=== PATIENT | female | born 1935 | race Caucasian/White ===

== ENCOUNTER 2017-03-17 14:33 | Inpatient (IN) | payer MEDICARE, OTHER ==
[2017-03-17] MEDS ORDERED: MORPHINE 2 MG/ML SYRINGE IVP STA ×3 (14:46→17:05)
--- NOTE | 2017-03-17 14:49 | ED Physician Documentation ---
PD HPI LOWER EXT INJURY - Stated complaint Stated Complaint: LT HIP PX - History obtained from History obtained from: Patient, Family - History of Present Illness PD HPI LOW EXT INJURY LOCATION: Left (She is visiting from [place], has a history of bilateral total knee replacements and right hip replacements. She got off balance and landed directly on her left hip just prior to arrival and has severe pain there, no other injuries. She is not able to walk.) Review of Systems Ten Systems: 10 systems reviewed and negative Constitutional: reports: Reviewed and negative Cardiac: reports: Reviewed and negative Respiratory: reports: Reviewed and negative Musculoskeletal: reports: Reviewed and negative PD PAST MEDICAL HISTORY - Past Medical History Past Medical History: Yes Cardiovascular: Hypertension - Past Surgical History Past Surgical History: Yes Ortho: Hip replacement, Knee replacement - Present Medications Home Medications: Ambulatory Orders Medication Instructions Recorded Confirmed Aspirin 325 mg PO DAILY 03/17/17 03/17/17 Calcium Carbonate/Vitamin D3 1 tab PO DAILY 03/17/17 03/17/17 [Calcium 500-Vit D3 200 Tablet] Gabapentin 100 mg PO DAILY PM 03/17/17 03/17/17 Losartan [Cozaar] 50 mg PO DAILY 03/17/17 03/17/17 - Allergies Allergies/Adverse Reactions: Allergies Allergy/AdvReac Type Severity Reaction Status Date / Time hydrocodone AdvReac Nausea Verified 03/17/17 15:00 - Living Situation Living Arrangement: reports: At home - Social History Does the pt smoke?: No Does the pt drink ETOH?: No Does the pt have substance abuse?: No - Family History Family history: reports: Non contributory PD ED PE NORMAL - Vitals Vital signs reviewed: Yes - General General: Alert and oriented X 3, No acute distress - HEENT HEENT: PERRL, EOMI - Neck Neck: Supple, no meningeal sign, No bony TTP - Cardiac Cardiac: RRR, No murmur - Respiratory Respiratory: No respiratory distress, Clear bilaterally - Abdomen Abdomen: Soft, Non tender - Derm Derm: Normal color, Warm and dry - Extremities Extremities: Other (Holding the left hip slightly flexed and slightly externally rotated but it is not shortened. She has severe pain with internal rotation, the pelvis seems nontender. Her knees are nontender.) - Neuro Neuro: Alert and oriented X 3, Normal speech - Psych Psych: Normal mood, Normal affect Results - Vitals Vitals: Vital Signs - 24 hr 03/17/17 03/17/17 14:40 16:50 Temperature 36.8 C Heart Rate 88 58 L Respiratory 16 14 Rate Blood Pressure 144/82 H 178/83 H O2 Saturation 98 100 Oxygen O2 Source Room air - Labs Labs: Laboratory Tests 03/17/17 03/17/17 03/17/17 14:55 14:55 14:55 WBC 7.7 RBC 4.60 Hgb 14.1 Hct 41.8 MCV 90.8 MCH 30.6 MCHC 33.6 RDW 13.5 Plt Count 224 MPV 7.2 L Neut # 5.3 Lymph # 1.6 [place] # 0.5 Eos # 0.2 Baso # 0.1 Absolute Nucleated RBC 0.00 Nucleated RBCs 0.1 PT INR Sodium 140 Potassium 4.2 Chloride 106 Carbon Dioxide 28 Anion Gap 6.0 BUN 16 Creatinine 0.6 Estimated GFR (MDRD) 96 Glucose 103 H Calcium 10.1 Total Bilirubin 0.9 AST 29 ALT 26 Alkaline Phosphatase 71 Total Protein 7.0 Albumin 4.1 Globulin 2.9 Albumin/Globulin Ratio 1.4 Lipase 33 Blood Type O POSITIVE Antibody Screen NEGATIVE 03/17/17 15:20 WBC RBC Hgb Hct MCV MCH MCHC RDW Plt Count MPV Neut # Lymph # [place] # Eos # Baso # Absolute Nucleated RBC Nucleated RBCs PT 11.1 INR 1.0 Sodium Potassium Chloride Carbon Dioxide Anion Gap BUN Creatinine Estimated GFR (MDRD) Glucose Calcium Total Bilirubin AST ALT Alkaline Phosphatase Total Protein Albumin Globulin Albumin/Globulin Ratio Lipase Blood Type Antibody Screen - Rads (name of study) L hip XR Radiology: EMP read contemporaneously (impacted L femoral neck frx) PD MEDICAL DECISION MAKING - ED course ED course: 81-year-old woman with ground-level fall injuring her left hip with clinical fracture proven on x-ray. Spoke with Dr. Bang, he will take her to the OR. We spoke approximately [address] Hawk for admission at 433 p.m. Departure - Departure Disposition: 66 [facility] DC/Xfer Clinical Impression: Fracture of femoral neck, left Qualifiers: Encounter type: initial encounter Fracture type: closed Qualified Code(s): S72.002A - Fracture of unspecified part of neck of left femur, initial encounter for closed fracture Condition: Stable Discharge Date/Time: 03/17/17 17:42
[2017-03-17] MEDS ORDERED: MORPHINE 2 MG/ML SYRINGE ONE ×4 (14:57→17:05)
[2017-03-17 15:06] LABS: BASOPHILS # (AUTO) 0.1 10^3/uL (0.0-0.1); BASOPHILS % (AUTO) 1.1 %; EOSINOPHILS # (AUTO) 0.2 10^3/uL (0.0-0.7); EOSINOPHILS % (AUTO) 2.6 %; HCT - HEMATOCRIT 41.8 % (37.0-47.0); HGB - HEMOGLOBIN 14.1 g/dL (12.0-16.0); LYMPHOCYTES # (AUTO) 1.6 10^3/uL (1.5-3.5); LYMPHOCYTES % (AUTO) 20.9 %; MEAN CORPUSCULAR HEMOGLOBIN 30.6 pg (27.0-31.0); MEAN CORPUSCULAR HGB CONC 33.6 g/dL (32.0-36.0); MEAN CORPUSCULAR VOLUME 90.8 fL (81.0-99.0); MEAN PLATELET VOLUME 7.2 fL (7.9-10.8); MONOCYTES # (AUTO) 0.5 10^3/uL (0.0-1.0); MONOCYTES % (AUTO) 6.5 %; NEUTROPHILS # (AUTO) 5.3 10^3/uL (1.5-6.6); NEUTROPHILS % (AUTO) 68.9 %; NUCLEATED RED BLOOD CELLS AUTO 0.1 /100WBC; RED CELL DISTRIBUTION WIDTH 13.5 % (12.0-15.0); UNCORRECTED WHITE BLOOD COUNT 7.7 x10^3/uL; WHITE BLOOD COUNT 7.7 x10^3/uL (4.8-10.8)
[2017-03-17 15:17] LABS: ALBUMIN/GLOBULIN RATIO 1.4 (1.0-2.2); BILIRUBIN,TOTAL 0.9 mg/dL (0.2-1.0); CALCIUM 10.1 mg/dL (8.5-10.3); CREATININE 0.6 mg/dL (0.4-1.0); POTASSIUM 4.2 mmol/L (3.5-5.0)
[2017-03-17 15:29] LABS: PT - PROTHROMBIN TIME 11.1 secs (9.9-12.6)
--- NOTE | 2017-03-17 16:43 | XRAY Preliminary Report ---
Exam: XR Hip w/Pelvis 2-3V LT IMPRESSION: Impacted left femoral neck fracture. [facility] SITE ID: [id number]
--- NOTE | 2017-03-17 16:45 | XRAY Report ---
EXAM: LEFT HIP AND PELVIS RADIOGRAPHY EXAM DATE: 03/17/2017 04:30 PM. HISTORY: Hip inj. COMPARISONS: None. TECHNIQUE: 1 view of the pelvis and 1 view of the hip. FINDINGS: Bones: Impacted left femoral neck fracture. Previous right hip replacement. Joints: Mild left hip osteoarthritis. Soft Tissues: Normal. No soft tissue swelling. IMPRESSION: Impacted left femoral neck fracture. [facility] Referring Provider Line: [phone] SITE ID: [id number]
[2017-03-17] MEDS ORDERED: fentaNYL 100 MCG/2 ML VIAL IVP SCH (17:10)
[2017-03-17] MEDS ORDERED: PROMETHAZINE 25 MG/1 ML VIAL IM PRN (17:22)
[2017-03-17] MEDS ORDERED: ONDANSETRON 4 MG/2 ML VIAL IVP PRN (17:22)
[2017-03-17] MEDS ORDERED: SODIUM CHLORIDE FLUSH 0.9% 10 ML SYRINGE IVP PRN (17:22)
[2017-03-17] MEDS: LACTATED RINGERS 1,000 ML IV SCH (18:39)
--- NOTE | 2017-03-17 19:02 | HISTORY & PHYSICAL EXAMINATION ---
DATE OF ADMISSION: 03/17/2017 PRIMARY CARE PROVIDER: In [place], [place]. ADMITTING PROVIDER: Constance Humphreys NP CHIEF COMPLAINT: Pain to left hip. HISTORY OF PRESENT ILLNESS: The patient is a very pleasant 81-year-old female who presented to the ER today with a complaint of left hip pain. The patient states she was in her usual status of health and she was visiting her daughter from [place], [place]. She did have a history of bilateral knee replacements and right hip replacement. Today when she went to hug her daughter, she coughed, l ost her balance and landed on her left hip. She noticed she had severe pain at that point and it was difficult to stand up. She sustained no other injuries. She noticed she was unable to walk and so her daughter and son-in-law brought her to the emergency room. On evaluation in the ER by the ER provide r, she was found to have a left hip fracture, nondisplaced, closed, proven on x-ray. Dr. Bang with Orthopedic was contacted and requested that hospitalist team admit the patient, and he would take he r to the OR in the morning. An x-ray showed an impacted left femoral neck fracture. The patient has a history of hypertension as well. Only takes 2 medications, Cozaar and gabapentin for sleep along wit h supplements that include calcium, vitamin D, and multivitamin. She does take an aspirin daily as we ll. SOCIAL HISTORY: The patient is very active in her activities of daily living. She walks a lot. She rojas s climbed mountains in the past and she rides bikes. She is alert and oriented and still working at t his time. 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 The pa alex's pain level was about a 6/10. She was being treated with IV morphine in the ER. The patient will be admitted to go to surgery in the morning with Dr. Bang for the hip fracture of the left femoral neck. ALLERGIES: HYDROCODONE. HOME MEDICATIONS 1. Calcium carbonate vitamin 3. 2. Cozaar. 3. Gabapentin 100 mg p.o. at night. 4. Aspirin 325 mg p.o. daily. PAST MEDICAL HISTORY 1. Hypertension. 2. Bilateral knee replacement. PAST SURGICAL HISTORY: Knee surgery, bilateral knees, and right hip fracture. FAMILY HISTORY: The patient states that both her parents lived to be relatively old. She does not rem ember what her father had, but she believes her mother might have had some cholesterol and hypertensi on. PAST SOCIAL HISTORY: The patient lives in [place]. 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 She was visiting her daughter and son-in-law in [facility]. She does not smoke nor jefferson s she use any illicit drugs and she does not drink alcohol. REVIEW OF SYSTEMS: Ten systems have been reviewed and is negative with the exceptions discussed in th e HPI. She is negative for nausea, vomiting, diarrhea, constipation. No chest pain or shortness of br eath. No headache. No hematuria or dysuria. She is positive for left hip pain. PHYSICAL EXAMINATION CONSTITUTIONAL: The patient is alert, in no acute distress. EYES: Pupils are equal, round, and reactive to light and accommodation. Conjunctivae and sclerae are not icteric, not injected. ENT: Nares are patent. No nasal discharge. Oropharynx with no masses, exudates, or lesions. Mucous me mbranes are moist. NECK: Supple. No thyromegaly. RESPIRATORY: Breath sounds are clear and equal bilaterally to auscultation and percussion. No retract ions, nasal flaring, or increased work of breathing. CARDIOVASCULAR: Regular rate and rhythm. No gallops, murmurs, or rubs. Normal PMI. No JVD, no bilater al lower extremity edema. GASTROINTESTINAL: Abdomen is soft, nontender. Bowel sounds are hypoactive. No guarding or rebound. GENITOURINARY: No CVA tenderness. Mild pain with palpation to the left lower back. Otherwise, no mass palpated. No bladder distention. SKIN: Warm, dry, intact. Normal turgor. No evidence of rashes, lesions, or cellulitis noted. Bilatera l scars to the knees from knee replacement surgery. EXTREMITIES: Left hip slightly externally rotated, not shortened. Severe pain with palpation to the p guillermina. She is stable and with slight internal rotation of the left leg. Pulses are palpable to bilate ral lower extremities. Pedal pulses and popliteal. Knees are also nontender and no edema. NEUROLOGICAL: She is alert, GCS 15. Cranial nerves 2-12 are grossly intact. Normal speech and sensory is intact. PSYCHIATRIC: Pleasant mood, laughing, cooperative, and no suicide ideation. VITAL SIGNS: Temperature is 36.8, heart rate 58, respirations 14, blood pressure 144/82, oxygen satur ation 98% on room air. HEMATOLOGIC: No active bleeding. The patient was hemodynamically stable. LYMPHATICS: No cervical, axillary, supraclavicular lymphadenopathy is noted. LABORATORY AND DIAGNOSTICS: I personally reviewed laboratory and diagnostic data in the medical recor ds dated for March 17, 2017. The results are as follows: WBC is 7.7, hemoglobin 14.1, sodium 140, potas sium 4.2, chloride 106, carbon dioxide 28, anion gap 6, BUN 16, creatinine 0.6, glucose 103, calcium 10.1. PT is 11.1, INR is 1.0. Urinalysis is pending. DIAGNOSTICS: Left hip x-ray impression shows an impacted left femoral neck fracture. IMPRESSION 1. Acute ground level fall onto left hip with clinical fracture, impacted left femoral neck with x-ra y confirmation. 2. Essential benign hypertension. 3. History of bilateral knee replacement surgery and right hip replacement surgery. PLAN: The patient was admitted inpatient status with consultation from Orthopedics. The patient is to go to the OR in the morning. Will refer to Dr. Bang for further orthopedic orders. The patient is on IV fluids, lactated Ringer's. She will be n.p.o. after midnight. Fentanyl IV for pain management and Tylenol/overnight IV for fever and mild pain. Zofran for nausea. The patient will continue on blo od pressure medications up until midnight. Also gabapentin 100 mg for sleep, that she does take at [facility]. Deep venous thrombosis prophylaxis with sequential compression devices and orthopedic to senior counsel commercial as far as deep venous thrombosis prophylaxis status post surgical left hip replacement. The patient w ill be placed on a cardiac diet once tolerating food. Physical and occupational therapy for consult w [facility] Ortho once patient is able to be ambulatory after surgery. Bed rest this evening. Will continue t o monitor electrolytes, CBC, and CMP. Urinalysis pending at this time. The patient will require Valentin prior to surgery. Time spent on consultations, assessment and planning was 40 minutes. STATUS: The patient is a FULL CODE status. RISK ASSESSMENT/DISPOSITION: The patient is high risk for worsening comorbidities. She will require m edication IV with high risk for toxicity. She will require IV fluids, additional diagnostics, and cedrick gical consultation with Orthopedics. Anticipated length of stay at least 2 midnights. JOB #: [id number] EXT JOB #:[id number]
[2017-03-17] MEDS: fentaNYL 100 MCG/2 ML VIAL IVP PRN (20:48)
[2017-03-17] MEDS: GABAPENTIN 100 MG CAPSULE PO SCH (20:48)
[2017-03-17] MEDS: SODIUM CHLORIDE FLUSH 0.9% 10 ML SYRINGE IVP SCH (20:49)
[2017-03-17] MEDS: ACETAMINOPHEN 1,000 MG/100 ML 100 ML IV SCH (20:49)
[2017-03-18] MEDS: fentaNYL 100 MCG/2 ML VIAL IVP PRN (02:11)
[2017-03-18] MEDS: ACETAMINOPHEN 1,000 MG/100 ML 100 ML IV SCH ×3 (02:55→15:06)
[2017-03-18] MEDS: LACTATED RINGERS 1,000 ML IV SCH ×2 (02:56→11:18)
[2017-03-18] MEDS: SODIUM CHLORIDE FLUSH 0.9% 10 ML SYRINGE IVP SCH ×3 (06:26→21:15)
[2017-03-18] MEDS: POLYETHYLENE GLYCOL 3350 17 GM PACKET PO SCH (07:15)
[2017-03-18] MEDS ORDERED: METOPROLOL 5 MG/5 ML VIAL IVP PRN (08:06)
--- NOTE | 2017-03-18 08:10 | PROVIDER PROGRESS NOTE ---
Assessment/Plan - Problem List (1) Fracture of femoral neck, left Qualifiers: Encounter type: initial encounter Fracture type: closed Qualified Code(s) : S72.002A - Fracture of unspecified part of neck of left femur, initial encounter for closed fracture Assessment/Plan: ongoing. patient to go to surgery today with Dr Dumas. She was having alot of pain in the left hip. spasms as well. Valium 5mg IV given. She also had a headache as well. she is getting tylenol and fentanyl for the pain (2) Other secondary hypertension, benign Assessment/Plan: acute, probably related to anxiety pre operative left hip repair with closed femoral neck fracture. Ordered lopressor 5mg IV PRN for systolic >180. ativan or xanax for anxiety. (3) Hyperglycemia, unspecified Assessment/Plan: acute. patient does not have history of diabetes and is NPO will get A1C. - Current Meds Current Meds: Current Medications Generic Name Dose Route Start Last Admin Trade Name Freq PRN Reason Stop Dose Admin Fentanyl 25 mcg 03/17/17 17:26 03/18/17 02:11 Fentanyl IVP 25 mcg Q2HR PRN Administration PAIN Gabapentin 100 mg 03/17/17 21:00 03/17/17 20:48 Neurontin PO 100 mg QPM BRAD Administration Lactated Ringer's 1,000 mls @ 100 mls/hr 03/17/17 18:00 03/18/17 02:56 Lr IV 100 mls/hr .Q10H BRAD Administration Acetaminophen 100 mls @ 400 mls/hr 03/17/17 18:00 03/18/17 02:55 Ofirmev IV 03/18/17 15:14 400 mls/hr Q6H BRAD Administration Ondansetron HCl 4 mg 03/17/17 17:22 03/18/17 06:22 Zofran Inj IVP 4 mg Q6HR PRN Administration Nausea / Vomiting Polyethylene Glycol 17 gm 03/18/17 09:00 03/18/17 07:15 Miralax PO Not Given DAILY BRAD Promethazine HCl 25 mg 03/17/17 17:22 03/18/17 07:44 Phenergan Inj IM 25 mg Q6HR PRN Administration Nausea / Vomiting Sodium Chloride 10 ml 03/17/17 22:00 03/18/17 06:26 Normal Saline Flush 0.9% IVP Not Given Q8HR [facility] - Lab Result Lab results reviewed: Yes Fish Bone Diagrams: 03/18/17 08:35 03/18/17 08:35 Other Lab Results: Abnormal Lab Results 03/17/17 03/17/17 14:55 14:55 MPV 7.2 fL L fL (7.9-10.8) Glucose 103 mg/dL H mg/dL (70-100) - EKG Results EKG Interpreted Independently: Yes - Additional Planning Condition/Complexity: Stable My Orders: My Active Orders 03/17/17 17:22 Acetaminophen [Tylenol] 650 mg PO Q4HR PRN Ondansetron Inj [Zofran Inj] 4 mg IVP Q6HR PRN Promethazine Inj [Phenergan Inj] 25 mg IM Q6HR PRN Sodium Chloride Flush 0.9% [Normal Saline Flush 0.9%] 10 ml IVP PRN PRN 03/17/17 17:23 Activity Orders [RC] Routine IO [RC] IOSHIFT Initiate Bowel Care Protocol [RC] QSHIFT Initiate Flu Vaccine Screening [RC] .once Initiate Line Care Protocol [RC] QSHIFT Initiate Personal Care Protoco [RC] QSHIFT Initiate Pneumonia Vaccine Scr [RC] .once Oxygen Therapy [RC] Routine Vital Signs [RC] Q8HR Code Status [OTHERS] Routine Condition of Patient [OTHERS] Routine DVT Prophylaxis [OTHERS] Routine 03/17/17 17:24 Daily Weight [RC] 0600 Incentive Spirometry - RT [RC] .tid Telemetry- [RC] Routine 03/17/17 17:25 SCDs [RC] QSHIFT Orthopedics Consult [CONS] Routine Evaluate and Treat OT [OT] Routine Evaluate and Treat PT [PT] Routine 03/17/17 17:26 fentaNYL 25 mcg IVP Q2HR PRN 03/17/17 18:00 Acetaminophen 1,000 mg/100 ml [Ofirmev] 100 ml IV Q6H Lactated Ringers [Lr] 1,000 ml IV 100 mls/hr 03/17/17 21:00 Gabapentin [Neurontin] 100 mg PO QPM 03/17/17 22:00 Sodium Chloride Flush 0.9% [Normal Saline Flush 0.9%] 10 ml IVP Q8HR 03/18/17 00:01 NPO except Meds [DIET] 03/18/17 08:06 Metoprolol Inj [Lopressor Inj] 5 mg IVP Q6H PRN 03/18/17 09:00 Calcium Carbonate [Tums] 500 mg PO DAILY Cholecalciferol [Vitamin D3] 200 unit PO DAILY Losartan [Cozaar] 50 mg PO DAILY Polyethylene Glycol 3350 [Miralax] 17 gm PO DAILY Consult/Specialty: OT, PT, Surgery Plan Discussed with:: Patient, Case Management Time Spent: 31-60 minutes Subjective - Subjective Patient Reports: Back Pain, Headache, Pain, Other (spasms in left hip from fracture) Nursing Reports: Nausea (patient has a headache and elevated blood pressure. pain meds not helping headache. given valium for spasms), Pain Objective Vital Signs: Vital Signs - 24 hr 03/17/17 03/17/17 03/17/17 17:30 18:12 21:44 Temperature 36.6 C 36.6 C Heart Rate 61 Heart Rate [ 64 59 L Brachial] Respiratory 14 16 18 Rate Blood Pressure 111/67 Blood Pressure 171/84 H 165/79 H [Right Brachial artery] O2 Saturation 100 97 96 03/18/17 03/18/17 00:24 06:00 Temperature 36.9 C 36.8 C Heart Rate Heart Rate [ 59 L 74 Brachial] Respiratory 18 16 Rate Blood Pressure Blood Pressure 167/87 H 175/88 H [Right Brachial artery] O2 Saturation 95 98 Oxygen O2 Source Room air I&O (Last 24 Hrs): Intake and Output Totals x24h 03/16/17 03/17/17 03/18/17 23:59 23:59 23:59 Intake Total 700 1325 Output Total 1150 400 Balance -450 925 General: Alert, Oriented x3, Cooperative, Mild distress HEENT: PERRLA, Mucous membr. moist/pink Neck: Supple, No JVD, +2 carotid pulse wo bruit Lymphatic: no adenopathy Neuro: Alert, Non Focal, CN 2-12 Grossly Intact, Oriented Times 3 Cardiovascular: Normal S1, Normal S2, No murmurs Respiratory: Chest non-tender, No respiratory distress, Breath sounds nml Abdomen: Normal bowel sounds, Soft, No tenderness, No masses Genitourinary: No Bleeding Rectal: Stool - Heme NEG Extremities: No clubbing, No cyanosis, No edema, Normal pulses, Other (pain to left hip with spasms) Skin: No rashes, No breakdown, No significant lesion (patient is to go to the OR with ortho this afternoon. She will need another 48 hours for PT and OT and she is on IV mediations with high risk for toxicity. She is high risk for worsening co morbid conditions.) - Results Results: Laboratory Results WBC 7.7 x10^3/uL (4.8-10.8) 03/17/17 14:55 RBC 4.60 10^6/uL (4.20-5.40) 03/17/17 14:55 Hgb 14.1 g/dL (12.0-16.0) 03/17/17 14:55 Hct 41.8 % (37.0-47.0) 03/17/17 14:55 MCV 90.8 fL (81.0-99.0) 03/17/17 14:55 MCH 30.6 pg (27.0-31.0) 03/17/17 14:55 MCHC 33.6 g/dL (32.0-36.0) 03/17/17 14:55 RDW 13.5 % (12.0-15.0) 03/17/17 14:55 Plt Count 224 10^3/uL (130-450) 03/17/17 14:55 MPV 7.2 fL (7.9-10.8) L 03/17/17 14:55 Neut # 5.3 10^3/uL (1.5-6.6) 03/17/17 14:55 Lymph # 1.6 10^3/uL (1.5-3.5) 03/17/17 14:55 [place] # 0.5 10^3/uL (0.0-1.0) 03/17/17 14:55 Eos # 0.2 10^3/uL (0.0-0.7) 03/17/17 14:55 Baso # 0.1 10^3/uL (0.0-0.1) 03/17/17 14:55 Absolute Nucleated RBC 0.00 x10^3/uL 03/17/17 14:55 Nucleated RBCs 0.1 /100WBC 03/17/17 14:55 PT 11.1 secs (9.9-12.6) 03/17/17 15:20 INR 1.0 (0.8-1.2) 03/17/17 15:20 Sodium 140 mmol/L (135-145) 03/17/17 14:55 Potassium 4.2 mmol/L (3.5-5.0) 03/17/17 14:55 Chloride 106 mmol/L (101-111) 03/17/17 14:55 Carbon Dioxide 28 mmol/L (21-32) 03/17/17 14:55 Anion Gap 6.0 (6-13) 03/17/17 14:55 BUN 16 mg/dL (6-20) 03/17/17 14:55 Creatinine 0.6 mg/dL (0.4-1.0) 03/17/17 14:55 Estimated GFR (MDRD) 96 (>89) 03/17/17 14:55 Glucose 103 mg/dL (70-100) H 03/17/17 14:55 Calcium 10.1 mg/dL (8.5-10.3) 03/17/17 14:55 Total Bilirubin 0.9 mg/dL (0.2-1.0) 03/17/17 14:55 AST 29 IU/L (10-42) 03/17/17 14:55 ALT 26 IU/L (10-60) 03/17/17 14:55 Alkaline Phosphatase 71 IU/L (42-121) 03/17/17 14:55 Total Protein 7.0 g/dL (6.7-8.2) 03/17/17 14:55 Albumin 4.1 g/dL (3.2-5.5) 03/17/17 14:55 Globulin 2.9 g/dL (2.1-4.2) 03/17/17 14:55 Albumin/Globulin Ratio 1.4 (1.0-2.2) 03/17/17 14:55 Lipase 33 U/L (22-51) 03/17/17 14:55 Blood Type O POSITIVE 03/17/17 14:55 Antibody Screen NEGATIVE 03/17/17 14:55
[2017-03-18] MEDS: LOSARTAN 50 MG TABLET PO SCH (08:26)
[2017-03-18 08:47] LABS: BASOPHILS % (AUTO) 0.4 %; EOSINOPHILS % (AUTO) 0.1 %; HCT - HEMATOCRIT 39.2 % (37.0-47.0); HGB - HEMOGLOBIN 13.5 g/dL (12.0-16.0); LYMPHOCYTES # (AUTO) 1.2 10^3/uL (1.5-3.5); LYMPHOCYTES % (AUTO) 12.2 %; MEAN CORPUSCULAR HEMOGLOBIN 30.8 pg (27.0-31.0); MEAN CORPUSCULAR HGB CONC 34.3 g/dL (32.0-36.0); MEAN CORPUSCULAR VOLUME 89.6 fL (81.0-99.0); MEAN PLATELET VOLUME 6.9 fL (7.9-10.8); MONOCYTES # (AUTO) 0.5 10^3/uL (0.0-1.0); MONOCYTES % (AUTO) 4.6 %; NEUTROPHILS # (AUTO) 8.1 10^3/uL (1.5-6.6); NEUTROPHILS % (AUTO) 82.7 %; RED BLOOD COUNT 4.38 10^6/uL (4.20-5.40); RED CELL DISTRIBUTION WIDTH 13.2 % (12.0-15.0); UNCORRECTED WHITE BLOOD COUNT 9.8 x10^3/uL; WHITE BLOOD COUNT 9.8 x10^3/uL (4.8-10.8)
[2017-03-18] MEDS: CALCIUM CARBONATE CHEW 500 MG TABLET PO SCH (08:47)
[2017-03-18] MEDS ORDERED: CHOLECALCIFEROL 400 UNIT TABLET PO SCH (09:00)
[2017-03-18] MEDS ORDERED: cloNIDine 0.1 MG TABLET PO ONE (09:00)
[2017-03-18] MEDS ORDERED: ALPRAZolam 0.25 MG TABLET PO ONE (09:00)
[2017-03-18 09:03] LABS: ALBUMIN/GLOBULIN RATIO 1.2 (1.0-2.2); BILIRUBIN,TOTAL 1.1 mg/dL (0.2-1.0); CALCIUM 9.5 mg/dL (8.5-10.3); CREATININE 0.5 mg/dL (0.4-1.0); MAGNESIUM 1.8 mg/dL (1.7-2.8); PHOSPHORUS 3.2 mg/dL (2.5-4.6); POTASSIUM 3.5 mmol/L (3.5-5.0); TOTAL PROTEIN 6.9 g/dL (6.7-8.2)
[2017-03-18] MEDS ORDERED: diazePAM INJ 5 MG/ML SYRINGE IVP ONE (10:00)
[2017-03-18] MEDS ORDERED: LACTATED RINGERS 600 ML IV ONE (16:06)
[2017-03-18] MEDS ORDERED: BUPIVACAINE 0.5%-EPI 1:200000 PF 30 ML VIAL SUBQ ONE (16:42)
[2017-03-18] MEDS ORDERED: MORPHINE PF 5 MG/10 ML AMP SUBQ ONE (16:43)
[2017-03-18] MEDS ORDERED: KETOROLAC 30 MG/ML VIAL IVP ONE (16:43)
[2017-03-18] MEDS ORDERED: EPINEPHrine 1 MG/ML AMP IVP ONE (16:44)
[2017-03-18] MEDS ORDERED: ROPIVACAINE 0.2% PF 20 ML AMPULE SUBQ ONE (16:44)
[2017-03-18] MEDS ORDERED: LACTATED RINGERS 1,000 ML IV ONE ×2 (16:45→17:55)
[2017-03-18] MEDS ORDERED: SODIUM CHLORIDE 0.9% 1,000 ML IV ONE ×2 (16:45→18:47)
[2017-03-18] MEDS ORDERED: ceFAZolin 1 GM VIAL IV ONE (16:50)
[2017-03-18] MEDS ORDERED: DEXAMETHASONE 4 MG/ML VIAL IVP ONE (16:50)
[2017-03-18] MEDS ORDERED: ACETAMINOPHEN 1,000 MG/100 ML VIAL IV ONE (16:50)
[2017-03-18] MEDS ORDERED: MORPHINE PF 5 MG/10 ML AMP EP ONE (16:50)
[2017-03-18] MEDS ORDERED: ePHEDrine 50 MG/ML AMP IVP ONE (16:50)
[2017-03-18] MEDS ORDERED: MIDAZOLAM 2 MG/2 ML VIAL IVP ONE (16:50)
[2017-03-18] MEDS ORDERED: fentaNYL 100 MCG/2 ML VIAL IVP ONE (16:50)
[2017-03-18] MEDS ORDERED: PROPOFOL 200 MG/20 ML VIAL IVP ONE (16:50)
[2017-03-18] MEDS ORDERED: ONDANSETRON 4 MG/2 ML VIAL IVP ONE (16:50)
[2017-03-18] MEDS ORDERED: ROCURONIUM 50 MG/5 ML VIAL IVP ONE (16:50)
[2017-03-18] MEDS ORDERED: SUCCINYLCHOLINE 200 MG/10 ML VIAL IVP ONE (16:50)
[2017-03-18] MEDS ORDERED: PHENYLEPHRINE 50 MG/5 ML VIAL IV ONE (16:50)
[2017-03-18] MEDS ORDERED: HYDROmorphone 1 MG/ML SYRINGE IVP ONE (16:50)
[2017-03-18] MEDS ORDERED: TRANEXAMIC ACID 1,000 MG/10 ML VIAL IV ONE (16:50)
[2017-03-18] MEDS ORDERED: LIDOCAINE-MPF 2% 5 ML VIAL IM ONE (16:50)
[2017-03-18] MEDS ORDERED: SODIUM CHLORIDE 0.9% 10 ML VIAL IV ONE (16:50)
[2017-03-18] MEDS ORDERED: hydrALAZINE INJ 20 MG/ML VIAL IVP ONE (16:50)
--- NOTE | 2017-03-18 19:52 | OPERATIVE REPORT ---
Operative Report - General Admit Date: 03/17/17 Procedure Date: 03/18/17 Planned Procedure: Left Total Hip Arthroplasty Pre-Op Diagnosis: 1. Left Femoral Neck Fracture, 2. Left Hip Primary Osteoarthritis. Post Op Diagnosis: Same - Procedure Note Primary Surgeon: Juan Dumas MD Anesthesia Provider: JESUS Mcleod Anesthesia Technique: General ET tube, Local Estimated Blood Loss (in cc): 950 - Other Other Information/Narrative: Fluids: 3700 mL LR. Urine: 300 mL. Blood: 2 units PRBCs. Condition: Stable Disposition: PACU >> MedSur (Telemetry). Implants: G7 OsseoTi Acetabular Shell, 4 Hole, Cementless, 56 mm. G7 Acetabular Screws x 3 (6.5 x 25, 30, +35 mm). G7 Acetabular UHMWP Liner Neutral w/ 36 mm ID Taperloc Primary Porous Coated Femoral Stem, Sandard Offset, 14 x 148 mm.
[2017-03-18] MEDS ORDERED: fentaNYL 100 MCG/2 ML VIAL ONE (20:10)
--- NOTE | 2017-03-18 20:43 | XRAY Preliminary Report ---
Exam: XR Hip w/Pelvis 2-3V LT IMPRESSION: New left total hip arthroplasty appears in anatomic alignment. [facility] SITE ID: [id number]
--- NOTE | 2017-03-18 20:45 | XRAY Report ---
EXAM: LEFT HIP AND PELVIS RADIOGRAPHY EXAM DATE: 03/18/2017 08:26 PM. HISTORY: Status Post Left Total Hip Arthroplasty. COMPARISONS: Left hip 03/17/2017. TECHNIQUE: 1 view of the pelvis and 1 view of the hip. FINDINGS: Bones: Normal. No fracture or bone lesion. Joints: New left total hip arthroplasty which appears in anatomical alignment. Right total hip arthro plasty appears unchanged. No subluxation. 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 Soft Tissues: Left hip and thigh soft tissue gas consistent with recent surgery. IMPRESSION: New left total hip arthroplasty appears in anatomic alignment. [facility] Referring Provider Line: [phone] SITE ID: [id number]
[2017-03-18] MEDS: GABAPENTIN 100 MG CAPSULE PO SCH (21:14)
[2017-03-18] MEDS: CHOLECALCIFEROL 5,000 UNIT CAPSULE PO SCH (21:14)
[2017-03-19] MEDS: LACTATED RINGERS 1,000 ML IV SCH (01:00)
[2017-03-19 06:32] LABS: BASOPHILS % (AUTO) 0.2 %; EOSINOPHILS % (AUTO) 0.1 %; HCT - HEMATOCRIT 37.9 % (37.0-47.0); HGB - HEMOGLOBIN 12.9 g/dL (12.0-16.0); LYMPHOCYTES # (AUTO) 1.1 10^3/uL (1.5-3.5); LYMPHOCYTES % (AUTO) 10.8 %; MEAN CORPUSCULAR HEMOGLOBIN 29.8 pg (27.0-31.0); MEAN CORPUSCULAR HGB CONC 34.1 g/dL (32.0-36.0); MEAN CORPUSCULAR VOLUME 87.3 fL (81.0-99.0); MEAN PLATELET VOLUME 7.4 fL (7.9-10.8); MONOCYTES # (AUTO) 1.3 10^3/uL (0.0-1.0); MONOCYTES % (AUTO) 12.3 %; NEUTROPHILS # (AUTO) 8.1 10^3/uL (1.5-6.6); NEUTROPHILS % (AUTO) 76.6 %; NUCLEATED RED BLOOD CELLS AUTO 0.1 /100WBC; RED BLOOD COUNT 4.34 10^6/uL (4.20-5.40); RED CELL DISTRIBUTION WIDTH 15.8 % (12.0-15.0); UNCORRECTED WHITE BLOOD COUNT 10.6 x10^3/uL; WHITE BLOOD COUNT 10.6 x10^3/uL (4.8-10.8)
[2017-03-19] MEDS: SODIUM CHLORIDE FLUSH 0.9% 10 ML SYRINGE IVP SCH ×3 (06:36→20:35)
[2017-03-19 06:42] LABS: ALBUMIN/GLOBULIN RATIO 1.3 (1.0-2.2); BILIRUBIN,TOTAL 0.7 mg/dL (0.2-1.0); CALCIUM 8.8 mg/dL (8.5-10.3); CREATININE 0.5 mg/dL (0.4-1.0); POTASSIUM 3.9 mmol/L (3.5-5.0); TOTAL PROTEIN 5.4 g/dL (6.7-8.2)
[2017-03-19 07:46] LABS: HEMOGLOBIN A1C 0.44 g/dL
[2017-03-19] MEDS: POLYETHYLENE GLYCOL 3350 17 GM PACKET PO SCH (08:42)
[2017-03-19] MEDS: ENOXAPARIN 40 MG/0.4 ML SYRINGE SUBQ SCH (08:53)
[2017-03-19] MEDS: LOSARTAN 50 MG TABLET PO SCH (08:53)
[2017-03-19] MEDS: KETOROLAC 15 MG/ML VIAL IVP PRN ×2 (08:53→20:35)
[2017-03-19] MEDS: CALCIUM CARBONATE CHEW 500 MG TABLET PO SCH (08:53)
[2017-03-19] MEDS: CHOLECALCIFEROL 5,000 UNIT CAPSULE PO SCH ×2 (08:53→20:35)
[2017-03-19] MEDS: ACETAMINOPHEN 325 MG TABLET PO PRN ×2 (15:44→20:45)
[2017-03-19] MEDS: GABAPENTIN 100 MG CAPSULE PO SCH (20:35)
[2017-03-20] MEDS: ACETAMINOPHEN 325 MG TABLET PO PRN (04:18)
[2017-03-20] MEDS: SODIUM CHLORIDE FLUSH 0.9% 10 ML SYRINGE IVP SCH ×2 (06:15→14:27)
[2017-03-20] MEDS: POLYETHYLENE GLYCOL 3350 17 GM PACKET PO SCH (08:39)
[2017-03-20] MEDS: CALCIUM CARBONATE CHEW 500 MG TABLET PO SCH (08:40)
[2017-03-20] MEDS: CHOLECALCIFEROL 5,000 UNIT CAPSULE PO SCH (08:40)
[2017-03-20] MEDS: ENOXAPARIN 40 MG/0.4 ML SYRINGE SUBQ SCH (08:41)
[2017-03-20] MEDS: LOSARTAN 50 MG TABLET PO SCH (10:48)
[2017-03-20] MEDS: oxyCOD/ACETAMIN 5 MG/325 MG TABLET PO PRN ×2 (11:22→15:38)
--- NOTE | 2017-03-20 13:50 | Discharge Plan ---
Discharge Plan Disposition: [facility] DC/Xfer Condition: Stable Prescriptions: oxyCODONE/ACET 5/325 [Percocet 5 mg/325 mg] 1 tab PO Q4HR PRN #20 tablet PRN Reason: Pain Diet: Regular Activity Restrictions: Wt Bearing as Tolerated (Wt bearing per post ORIF Physical Therapy protocol) Weight Bearing: as tolerated No Smoking: If you smoke, Please STOP! Call for help.
[2017-03-20 15:38] VITALS: BP 133/68
--- NOTE | 2017-03-20 20:43 | DISCHARGE SUMMARY ---
DATE OF ADMISSION: 03/17/2017 DATE OF DISCHARGE: 03/20/2017 PRIMARY CARE PROVIDER: [place], physician. DISCHARGING PROVIDER: Vick Moses PA-C. ADMITTING DIAGNOSES: 1. Left hip fracture. 2. Essential hypertension. DISCHARGE DIAGNOSIS: 1. Fracture of femoral neck on the left side. She is status post open reduction internal fixation by Dr. Dumas. 2. Essential hypertension being controlled on current medication. 3. Hyperglycemia with A1c of 5.1. HISTORY OF PRESENT ILLNESS: For specifics please see admission. The patient is visiting from [place], [place], who lost her balance and had a mechanical fall, landing on her left hip. She had severe pa in and was having problems standing. She reported to the emergency department for evaluation and was found to have left femoral neck fracture. HOSPITAL COURSE: The patient was admitted for observation with anticipation of surgery. She was taken to the OR on 03/18/[address] Dumas. He then performed a left total hip arthroplasty. The procedur e was performed without complications or difficulties. The patient was returned back to the medical/s urgical floor for continued observation. The patient participated in physical therapy as directed. He r pain was controlled on current medications. Discussion was made on discharge. Because she lives in [place], she chose rehab at [facility]. DISPOSITION: Discharged to [facility] rehab, followup with orthopedic surgeon as directed. The patient w ill participate in physical therapy. DISCHARGE MEDICATIONS: Oxycodone/acetaminophen 5/325 one tablet q. 4 hours as needed for pain. Activity restrictions, weightbearing as tolerated. IMAGING: X-rays 03/17/2017 impacted left femoral neck fracture, postop film 03/18/2017 new left total hip arthroplasty appears in anatomical alignment. LABORATORY DATA: During admission sodium 139, potassium 3.8, chloride 108, carbon dioxide 25, BUN 13, creatinine 0.5. Glycosylated hemoglobin 5.2, calcium 8.8, total protein 5.4, albumin 3.1. White bloo d cell 10.6, hemoglobin 12.9, hematocrit 37.9, platelets 159. PHYSICAL EXAMINATION ON DISCHARGE: GENERAL: A well-developed, well-nourished, no acute distress. CHEST: Clear to auscultation. HEART: Regular rate and rhythm without murmurs, rubs, or gallops. ABDOMEN: Benign. EXTREMITIES: Without edema, warmth, discoloration or deformities. Incision was clean, dry, intact. Pe manuel pulses were intact. Time spent on discharge greater than 30 minutes. JOB #: [id number] EXT JOB #:[id number]
--- NOTE | 2017-03-26 08:50 | CONSULTATION NOTE ---
DATE OF CONSULTATION: REQUESTING PROVIDER: Vick Moses PA-C REASON FOR CONSULTATION: Left hip pain after fracture. HISTORY OF PRESENT ILLNESS: The patient is an 81-year-old female visiting [place] from [place], [place], who suffered a ground-level fall injuring her left hip and admitted through the emergency [facility] on 03/17/2017 in the afternoon with complaints of hip pain and inability to ambulate. PRIOR MEDICAL HISTORY: Positive for hypertension, prior hip and knee replacements. MEDICATIONS 1. Aspirin. 2. Gabapentin. 3. Cozaar. ALLERGIES: HYDROCODONE. SOCIAL HISTORY: The patient lives at home, her home is [place]. She does not smoke or drink. Does not use drugs. REVIEW OF SYSTEMS: Negative. LABORATORY EVALUATION: Unremarkable. X-ray revealed an impacted left femoral neck fracture with osteoarthritis of the hip. PHYSICAL EXAMINATION: Revealed a lady who is pleasant, lying in bed. She has hip pain. She has pain w ith movement of her hip. Her limb is minimally altered in length and neurovascular exam is intact. Th ere is minimal limb swelling. Patient's exam otherwise unremarkable. IMPRESSION: An impacted femoral neck fracture in the face of osteoarthritis. PLAN: For admission to the hospital and preparation for hip surgery with Dr. Dumas, who has operativ e block time on the day after admission to proceed to total hip arthroplasty versus operative repair of his choice. I have evaluated the patient, discussed options with her, and she is scheduled to proceed to surgery. JOB #: [id number] EXT JOB #:[id number]
--- NOTE | 2017-04-30 11:55 | OPERATIVE REPORT ---
DATE OF SURGERY: 03/18/2017 00:00:00 PREOPERATIVE DIAGNOSES 1. Left femoral neck fracture. 2. Left hip primary osteoarthritis. POSTOPERATIVE DIAGNOSES 1. Left femoral neck fracture. 2. Left hip primary osteoarthritis. NAME OF PROCEDURE: Left total hip arthroplasty. SURGEON: Juan Dumas MD ANESTHESIA: Samir Mcleod CRNA - general endotracheal with local supplementation. BLOOD LOSS: 950 mL. FLUIDS: 3700 mL of lactated Ringer's. URINE: 300 mL. BLOOD: Two units of packed red blood cells. CONDITION AT END OF PROCEDURE: Stable. DISPOSITION: PACU then med/surg. IMPLANTS 1. G7 [place] acetabular shell, 4-hole, cementless, 56 mm outer diameter. 2. G7 acetabular screws x3 (6.5 x 25, 30 x 6.5, and 35 x 6.5). 3. G7 acetabular UHMWP liner, neutral, with 36 mm inner diameter. 4. [place] primary porous-coated femoral stem, standard offset, 14 x 148 mm. INDICATIONS: This is an 81-year-old female who sustained a basilar neck fracture of her left femoral neck in a ground-level fall in her home. Because radiographs showed a Garden IV type femoral neck fracture, and because she had significant osteoarthritis in her left hip, we had a long discussion and elected to proceed with left total hip arthroplasty. PROCEDURE IN DETAIL: After consent and identification, the patient was brought to the operating room and placed in the supine position on the operating table. After induction of general endotracheal anesthesia and appropriate monitoring, the patient was placed in a right lateral decubitus position on the peg board with silicone gel padding. Axillary roll was placed in the right axilla. Padding was placed underneath the right peroneal nerve. Padded posts were placed at the pubic symphysis, chest, sacrum, and right ischium. After appropriate prepping and draping of the left lower extremity, we conducted formal timeout. We then flexed the left hip to a 45 degree position and mapped out a longitudinal incision centered over the tip of the greater trochanter extending 14 cm distal and approximately 14 cm proximal to the greater trochanter. Incision was made through the skin and subcuticular tissue down to the level of the iliotibial band and the external fascia over the tensor fascia adriana and the gluteal musculature. Electrocautery was used to control bleeding. We then divided the iliotibial band longitudinally with curved Gilliland scissors. We split the tensor fascia adriana and divided up into the gluteus maximums muscle. This exposed the greater trochanter and the gluteus medius musculature. We elevated a digastric sleeve off the anterior portion of the greater trochanter involving the anterior one-third of the gluteus medius muscle plus the anterior portion of the vastus lateralis muscle. This dissection was carried out subperiosteally with the electrocautery. We then exposed the anterior portion of the hip capsule with the attachment of the gluteus minimus muscle. We divided the gluteus minimis muscle from the anterior and superior capsule. We then performed a H-shaped capsulotomy into the hip capsule. We evacuated hematoma and identified the fracture site. With the hip in a slightly externally rotated position, we identified our anatomic landmarks for the femoral neck. We used a reciprocating saw to perform a femoral neck amputation approximately 1.5 cm superior to the lesser trochanter along the calcar. The posterior portion of the femoral neck incision and superior aspect were completed with an osteotome. We removed the femoral neck portion of the cut. We then internally rotated the femoral head and used a corkscrew to pass up the femoral neck into the femoral head. Using that and a Ward elevator, we elevated the femoral head out of the acetabulum and removed it. A rongeur and electrocautery were used to clear the ligamentous teres and soft tissue from the cotyloid fossa. We completed our capsulotomy and resected the labrum with the electrocautery. Marginal osteophytes were resected with an osteotome. We then sequentially reamed the acetabulum beginning with a 48 mm reamer and continuing our reaming up to a 56 mm reamer. We trialed a 56 mm trial and elected to go with a 56 mm acetabular cup. The cup was positioned on the hand endband cutter and the external guide on the hand endband cutter was used to place the cup in a 10-degree anteverted and 45-degree coverage position in the acetabulum. It was intact at home with a solid fixation. We removed the screw on hand endband cutter and used the central impactor to further impact the acetabular cup. However, we noted that there was some tendency for the cup to loosen with stress. We reimpacted the cup and elected to place 3 each acetabular screws of appropriate length into the superior dome of the acetabular shell. With the shell firmly fixed and attached with 3 screws, we then inserted the ultra-high molecular weight polyethylene liner with a 36 mm internal diameter. This was impacted flush to the acetabular shell. We placed a lap sponge over the acetabular liner to protect it and then flexed the hip up to 45 degrees and externally rotated the lower extremity to a 90 degree position. This allowed us to identify our landmarks in the superior portion of the proximal femur. We used a lateralizing reamer to find our femoral canal. We then used the Notifo cutter to lateralize on the superior neck. We then sequentially broached the proximal femur starting with a size 6 broach and broaching up to a size 14 broach, which gave excellent seating and excellent rotational stability. With the broach in place, we attached a standard neck with a standard offset and a 36 mm head and trialed the femoral component in the acetabulum after removing the lap sponge. We had excellent stability. We then removed our trial components and thoroughly irrigated the wound. We opened our 14 x 148 mm standard offset femoral stem and impacted it into the femoral canal. We assembled the 36 mm outer diameter standard neck and impacted it onto the trunnion. After further irrigation, we reduced the hip and noted good range of motion, excellent rotational stability, and a negative shuck test. We then sequentially closed the wound by reapproximating the capsule using a running interlocked #5 Ethibond suture. The anterior portion of the gluteus medius and the anterior portion of the vastus lateralis in a digastric sleeve was then reapproximated to the anterior portion of the greater trochanter through drill holes using a #2 FiberWire suture, which was then used to oversew the construct to the remaining portion of the gluteus medius and vastus lateralis. We then closed the IT band and lateral fascia to the tensor fascia adriana with a running interlocked #1 Vicryl suture. Interrupted 2 Vicryl sutures were used to the subcuticular tissue followed by a running 3-0 Monocryl subdermal stitch. Mastisol and Steri-Strips were applied to the wound followed by an Aquacel dressing. On completion of the procedure, the patient was extubated and transferred to the recovery room in good condition, having tolerated the procedure well. JOB #: [id number] EXT JOB #:[id number] MAILE
== END 2017-03-20 16:05 | DRG 470 ==
LOC: ED 14:33 → MS 17:08
PROVIDERS: ADMIT Nurse Practitioner; ATTEND Physician Assistant
PROC: 0SRB02A Replacement of Left Hip Joint with Metal on Polyethylene Synthetic Substitute, Uncemented, Open Approach (ICD-10-PCS; principal; 2017-03-18 12:00)
DX: S72.002A Fracture of unspecified part of neck of left femur, initial encounter for closed fracture (principal); W18.39XA Other fall on same level, initial encounter; W18.30XA Fall on same level, unspecified, initial encounter; M16.12 Unilateral primary osteoarthritis, left hip; R51 Headache; I10 Essential (primary) hypertension; Z96.653 Presence of artificial knee joint, bilateral; Z96.641 Presence of right artificial hip joint; Z79.82 Long term (current) use of aspirin
CPT/HCPCS: 36415; 51702; 80053; 83036; 83690; 83735; 84100; 85025; 85610; 86850; 86900; 86901; 86920; 96374; 96376; 99283; 99285